=== PATIENT | male | born 1980 | race Caucasian/White ===

== ENCOUNTER 2016-07-24 10:15 | Emergency (ER) | payer BC ==
[~2016-07-24] VITALS: Ht 167.6 cm; Wt 87.0 kg
[~2016-07-24 10:15] MED LIST: DOXE50CA3 PO; GABA100C4 PO; METH750T2 PO
[2016-07-24 10:17] VITALS: BP 125/76; PULSE 104; RESP 14; TEMP 98.4; O2SAT 98
--- NOTE | 2016-07-24 10:31 | PD ---
HPI Chief Complaint: Medical Clearance Time Seen by Provider: 10:31 Travel History International Travel<30 days: No Contact w/Intl Traveler<30days: No Traveled to known affect area: No History of Present Illness HPI 35-year-old male into the emergency room with history of opiate withdrawal symptoms. He was at [facility] and was vomiting. The physician at the Center was not comfortable keeping him in the area. He discharged him and asked him to come to the emergency room. Patient said his last vomitus was this morning. His last use of opiates was 2 days ago. He did Dilaudid's off the street. Patient is awake and answering questions appropriately. He was slightly tachycardic in triage. [facility] Past Medical History Narrative Medical List of his past medical, surgical, social and family history was reviewed from the nursing note. Cardiovascular Problems: Yes (high heart rate) Insomnia: Yes Social History Alcohol Use: No Tobacco Use: No Substance Use: No Allergies-Medications (Allergen,Severity, Reaction): Coded Allergies: No Known Allergies (Unverified , 07/24/16) Comments No known drug allergies. Reported Meds & Prescriptions Reported Meds & Active Scripts Active Clonidine (Clonidine HCl) 0.1 Mg Tab 0.1 Mg PO BID Loperamide (Loperamide HCl) 2 Mg Cap 2 Mg PO DIRECTED PRN One capsule after each loose stool. Not to exceed 8 capsules per day. Zofran Odt (Ondansetron Odt) 4 Mg Tab 4 Mg SL Q6HR PRN Narrative Medication List of his home medications reviewed from the nursing note. Review of Systems Except as stated in HPI: all other systems reviewed are Neg Physical Exam Narrative GENERAL: Awake, alert, no obvious distress SKIN: Focused skin assessment warm/dry. HEAD: Atraumatic. Normocephalic. EYES: Pupils equal and round. No scleral icterus. No injection or drainage. ENT: No nasal bleeding or discharge. Dry mucous membrane. NECK: Trachea midline. No JVD. CARDIOVASCULAR: Regular rate and rhythm. No murmur appreciated. RESPIRATORY: No accessory muscle use. Clear to auscultation. Breath sounds equal bilaterally. GASTROINTESTINAL: Abdomen soft, non-tender, nondistended. Hepatic and splenic margins not palpable. MUSCULOSKELETAL: No obvious deformities. No clubbing. No cyanosis. No edema. NEUROLOGICAL: Awake and alert. No obvious cranial nerve deficits. Motor grossly within normal limits. Normal speech. PSYCHIATRIC: Appropriate mood and affect; insight and judgment normal. Data Data Last Documented VS Vital Signs Date Time Temp Pulse Resp B/P Pulse Ox O2 Delivery O2 Flow Rate FiO2 07/24/16 12:08 79 16 113/75 97 Room Air 07/24/16 10:17 98.4 Orders Complete Blood Count With Diff (07/24/16 10:33) Comprehensive Metabolic Panel (07/24/16 10:33) Iv Access Insert/Monitor (07/24/16 10:33) Ecg Monitoring (07/24/16 10:33) Oximetry (07/24/16 10:33) Ondansetron Inj (Zofran Inj) (07/24/16 10:45) Sodium Chlor 0.9% 1000 Ml Inj (Ns 1000 M (07/24/16 10:33) Sodium Chloride 0.9% Flush (Ns Flush) (07/24/16 10:45) Clonidine (Catapres) (07/24/16 10:45) Loperamide (Imodium) (07/24/16 10:45) Sodium Chlor 0.9% 1000 Ml Inj (Ns 1000 M (07/24/16 12:00) Labs Laboratory Tests Test 07/24/16 11:26 White Blood Count 16.0 TH/MM3 Red Blood Count 5.93 MIL/MM3 Hemoglobin 15.8 GM/DL Hematocrit 46.3 % Mean Corpuscular Volume 78.1 FL Mean Corpuscular Hemoglobin 26.6 PG Mean Corpuscular Hemoglobin 34.0 % Concent Red Cell Distribution Width 14.6 % Platelet Count 372 TH/MM3 Mean Platelet Volume 7.1 FL Neutrophils (%) (Auto) 87.1 % Lymphocytes (%) (Auto) 7.6 % Monocytes (%) (Auto) 4.8 % Eosinophils (%) (Auto) 0.1 % Basophils (%) (Auto) 0.4 % Neutrophils # (Auto) 14.0 TH/MM3 Lymphocytes # (Auto) 1.2 TH/MM3 Monocytes # (Auto) 0.8 TH/MM3 Eosinophils # (Auto) 0.0 TH/MM3 Basophils # (Auto) 0.1 TH/MM3 CBC Comment DIFF FINAL Differential Comment Sodium Level 142 MEQ/L Potassium Level 3.7 MEQ/L Chloride Level 104 MEQ/L Carbon Dioxide Level 29.4 MEQ/L Anion Gap 9 MEQ/L Blood Urea Nitrogen 12 MG/DL Creatinine 1.13 MG/DL Estimat Glomerular Filtration 75 ML/MIN Rate Random Glucose 122 MG/DL Calcium Level 10.2 MG/DL Total Bilirubin 0.4 MG/DL Aspartate Amino Transf 42 U/L (AST/SGOT) Alanine Aminotransferase 41 U/L (ALT/SGPT) Alkaline Phosphatase 147 U/L Total Protein 9.7 GM/DL Albumin 4.5 GM/DL [facility] Medical Decision Making Medical Screen Exam Complete: Yes Emergency Medical Condition: Yes Medical Record Reviewed: Yes Differential Diagnosis Opiate withdrawal, electrolyte abnormality, dehydration Narrative Course 11:18 AM for the blood test results. Patient was given IV fluid bolus, IV Zofran, by mouth loperamide and by mouth clonidine. 12:53 PM chemistries back and overall acceptable. Patient was given a glass of Gatorade and jesus crackers. He finished a Gatorade and ate 1 jesus cracker and has kept it down. A second liter of fluid bolus. I'm comfortable discharging him home at this point. He said he does not want to go back to [facility] and he'll try to do the detox at home. I'll discharge him home with prescriptions. Procedures EKG Prior to Arrival: No Diagnosis Primary Impression: Opiate withdrawal Additional Impression: Dehydration Referrals: Primary Care Physician 2 days Additional Instructions: Please return to the ER if the condition worsens or any other new concerns. Otherwise follow-up with your primary care. Take the medications as per the prescription direction. Med/Other Pt SpecificInfo: Prescription(s) given Scripts Clonidine 0.1 Mg Tab0.1 Mg PO BID #20 TAB Ref 0 Prov:Marcia Vogt MD 07/24/16 Loperamide 2 Mg Cap2 Mg PO DIRECTED PRN (DIARRHEA) #15 CAP Ref 0 One capsule after each loose stool. Not to exceed 8 capsules per day. Prov:Marcia Vogt MD 07/24/16 Ondansetron Odt (Zofran Odt)4 Mg Tab4 Mg SL Q6HR PRN (Nausea/Vomiting) #15 TAB Ref 0 Prov:Marcia Vogt MD 07/24/16 Disposition: 01 DISCHARGE HOME Condition: Stable Marcia Vogt MD July 24, 2016 10:31
[2016-07-24] MEDS ORDERED: SODIUM CHLOR 0.9% 1000 ML INJ 1,000 ML IV SCH (10:33)
[2016-07-24] MEDS ORDERED: cloNIDine HCL 0.1 MG TAB PO ONE (10:45)
[2016-07-24] MEDS ORDERED: ONDANSETRON HCL 4 MG/2 ML VIAL IVP ONE (10:45)
[2016-07-24] MEDS ORDERED: SODIUM CHLORIDE 0.9% FLUSH 10 ML FLUSH IV FLUSH PRN (10:45)
[2016-07-24] MEDS ORDERED: LOPERAMIDE HCL 2 MG CAP PO ONE (10:45)
[2016-07-24 11:31] LABS: BASOPHIL # 0.1 TH/MM3 (0-0.2); BASOPHIL % 0.4 % (0.0-2.0); EOSINOPHIL % 0.1 % (0.0-4.0); HEMATOCRIT 46.3 % (39.0-51.0); HEMO FLAGS DIFF FINAL; LYMPH % 7.6 % (9.0-44.0); LYMPHOCYTE # 1.2 TH/MM3 (1.0-4.8); MEAN CELL VOLUME 78.1 FL (80.0-100.0); MEAN CORPUSCULAR HEMOGLOBIN 26.6 PG (27.0-34.0); MONO % 4.8 % (0.0-8.0); NEUT % 87.1 % (16.0-70.0); PLATELET COUNT 372 TH/MM3 (150-450); RED BLOOD COUNT 5.93 MIL/MM3 (4.50-5.90); RED CELL DISTRIBUTION WIDTH 14.6 % (11.6-17.2)
[2016-07-24 11:34] VITALS: BP 109/67; PULSE 79; RESP 16; O2SAT 99
[2016-07-24 11:52] LABS: ANION GAP 9 MEQ/L (5-15); AST (GOT) 42 U/L (15-37); BICARBONATE 29.4 MEQ/L (21.0-32.0); BLOOD UREA NITROGEN 12 MG/DL (7-18); CHLORIDE 104 MEQ/L (98-107); GLOMERULAR FILTRATION RATE 75 ML/MIN (>89); POTASSIUM 3.7 MEQ/L (3.5-5.1); SODIUM (NA) 142 MEQ/L (136-145)
[2016-07-24 11:55] LABS: ALKALINE PHOSPHATASE 147 U/L (45-117); ALT (GPT) 41 U/L (12-78); TOTAL BILIRUBIN ADULT 0.4 MG/DL (0.2-1.0)
[2016-07-24] MEDS ORDERED: SODIUM CHLOR 0.9% 1000 ML INJ 1,000 ML IV ONE (12:00)
[2016-07-24 12:08] VITALS: BP 113/75; PULSE 79; RESP 16; O2SAT 97
[2016-07-24] MEDS ORDERED: CLON0.1T PO (12:56)
[2016-07-24] MEDS ORDERED: ZOFR4TAB3 SL (12:56)
[2016-07-24] MEDS ORDERED: LOPE2CAP PO (12:56)
[2016-09-16] MEDS ORDERED: VENL75XR PO (13:10)
[2016-09-16] MEDS ORDERED: CLON0.1T PO (13:10)
[2016-09-16] MEDS ORDERED: QUET1TAB8 PO (13:10)
== END 2016-07-24 13:26 | disposition home or self-care (01) ==
LOC: NEPD 10:15
DX: F11.23 Opioid dependence with withdrawal (principal); E86.0 Dehydration
CPT/HCPCS: 80053; 85025; 96361; 96374; 99283; J2405; J7030

== ENCOUNTER 2017-01-29 09:02 | Emergency (ER) | payer SELFPAY ==
[~2017-01-29] VITALS: Ht 167.6 cm; Wt 80.0 kg
[~2017-01-29 09:02] MED LIST changes: +CLON0.1T PO; -DOXE50CA3 PO; -GABA100C4 PO; -METH750T2 PO; +QUET1TAB8 PO; +VENL75XR PO
[2017-01-29 09:08] VITALS: BP 143/84; PULSE 109; RESP 16; TEMP 98.8; O2SAT 96
[2017-01-29] MEDS ORDERED: SERO100T PO (09:43)
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
[2017-01-29] MEDS ORDERED: LIDOCAINE HCL 1% 50 ML VIAL INFIL ONE (11:00)
[2017-01-29] MEDS ORDERED: TETANUS/DIPHTHERIA TOXOID ADULT 0.5 ML VIAL IM ONE (11:15)
[2017-01-29] MEDS ORDERED: BACT800T5 PO (11:19)
--- NOTE | 2017-01-29 11:20 | PD ---
Physical Exam Date Seen by Provider: Jan 29, 2017 Time Seen by Provider: 11:16 Narrative 36-year-old male presents emergency department for evaluation of area of swelling and pain on the dorsal aspect of his left hand proximal to the fifth phalange. I was asked by provider, Dr. Parker to perform an I&D. Data Data Last Documented VS Vital Signs Date Time Temp Pulse Resp B/P (MAP) Pulse Ox O2 Delivery O2 Flow Rate FiO2 01/29/17 09:08 98.8 109 16 143/84 (103) 96 Orders Orders Hand, Complete ([id number]) (01/29/17 09:41) Lidocaine 1% Inj (50 Ml) (Xylocaine 1% I (01/29/17 11:00) Tetanus/Diphtheria Tox Adult (Tetanus/Di (01/29/17 11:15) Wound Culture And Gram Stain (01/29/17 11:05) MDM Supervised Visit with ASIF: Yes Narrative Course 36-year-old male patient presents emergency department for evaluation of area pain and swelling on the dorsal aspect of the left hand lateral to the fifth phalange. The area of erythema measures 5 cm 5 cm however the area of fluctuation is centered in the area of erythema and measures 3 cm 3 cm. I&D was performed. Please see my procedural narrative. Dr. Parker retains care of this patient. Please see his documentation for further details and disposition. Procedures Procedure Narrative INCISION AND DRAINAGE OF ABSCESS: The area was prepped and was sterilely draped. A subcutaneous wheal of 1 % Xylocaine with a total number 3 mL was used to anesthetize the area properly. A number 11 scalpel was used to make a 1 -cm incision across the area of the abscess. The abscess was drained, complex loculations were broken down, and irrigated with normal saline. Cultures were obtained. Quarter inch iodoform packing was placed in the wound. Sterile dressing applied. Patient advised to have packing removed in two days. Stacie Jarvis Jan 29, 2017 11:20
== END 2017-01-29 11:40 | disposition home or self-care (01) ==
LOC: PHED 09:02
DX: L02.512 Cutaneous abscess of left hand (principal); B95.62 Methicillin resistant Staphylococcus aureus infection as the cause of diseases classified elsewhere; Y04.2XXA Assault by strike against or bumped into by another person, initial encounter; Z23 Encounter for immunization
CPT/HCPCS: 10060; 10061; 73130; 86403; 87070; 87186; 87205; 90471; 90714